=== PATIENT | female | born 1960 | race Two or more races ===

== ENCOUNTER 2025-01-16 08:25 | Emergency (ER) | payer OTHER ==
[~2025-01-16] VITALS: Ht 167.6 cm; Wt 53.5 kg
[2025-01-16] MEDS ORDERED: LYRICA50 MG (09:12)
[2025-01-16] MEDS ORDERED: LIPITOR80 MG PO (09:12)
[2025-01-16] MEDS ORDERED: XANAX0.25 MG (09:12)
[2025-01-16] MEDS ORDERED: LORazepam 2 MG/ML VIAL IM STA (09:26)
[2025-01-16] MEDS ORDERED: 0.9 % SODIUM CHLORIDE 1,000 ML IV STA (09:27)
[2025-01-16] MEDS ORDERED: FAMOTIDINE/PF 20 MG/2 ML VIAL IV STA (09:27)
[2025-01-16] MEDS ORDERED: ONDANSETRON HCL 2 MG/ML VIAL IV STA (09:27)
[2025-01-16 10:14] LABS: HEMATOCRIT 46.3 % (36.0-45.00); HEMOGLOBIN 15.7 g/dL (12.0-15.00); MEAN CELL VOLUME 104.1 fL (80.00-100.00); MEAN CORPUSCULAR HEMOGLOBIN 35.2 pg (27.00-32.0); MEAN CORPUSCULAR HGB CONC 33.8 g/dl (32.0-36.0); PLATELET COUNT 192 K/uL (150-450); RED BLOOD COUNT 4.45 M/uL (4.00-6.00); RED CELL DISTRIBUTION WIDTH 13.7 % (11.5-14.5)
[2025-01-16 10:54] LABS: CALCIUM 8.6 mg/dL (8.5-10.1); CREATININE SERUM 0.65 mg/dL (0.55-1.02); GFR 91.19; POTASSIUM 4.52 mEq/L (3.5-5.1)
[2025-01-16] MEDS ORDERED: INTESTINEX680 M1 PO (14:10)
[2025-01-16] MEDS ORDERED: AMOX1TAB5 PO (14:10)
[2025-01-16] MEDS ORDERED: CLONAZEPAM1 MG PO (14:10)
== END 2025-01-16 14:39 | disposition home or self-care (01) ==
LOC: ER 08:27
PROVIDERS: General Practice
DX: S50.812A Abrasion of left forearm, initial encounter (principal); W18.39XA Other fall on same level, initial encounter; Y93.89 Activity, other specified; Y92.89 Other specified places as the place of occurrence of the external cause; E78.00 Pure hypercholesterolemia, unspecified; M79.7 Fibromyalgia; F41.8 Other specified anxiety disorders; Z86.73 Personal history of transient ischemic attack (TIA), and cerebral infarction without residual deficits; F10.939 Alcohol use, unspecified with withdrawal, unspecified